=== PATIENT | female | born 1970 ===

== ENCOUNTER 2019-01-12 07:24 | Emergency (ER) | payer BC ==
--- NOTE | 2019-01-12 08:15 | UC ---
Respiratory Complaint HPI - HPI Summary HPI Summary: 48-year-old nonsmoker who has had cold symptoms for one week and a residual harsh cough. She has no history of asthma. - History of Current Complaint Stated Complaint: COUGH Time Seen by Provider: 01/12/19 08:01 Hx Obtained From: Patient ?: No Onset/Duration: Gradual Onset, Other Timing: Intermittent Episodes - Started 8 days ago. Severity Initially: Mild Severity Currently: Moderate Character: Cough: Nonproductive Aggravating Factors: Recumbent Position Alleviating Factors: Nothing Associated Signs And Symptoms: Positive: Wheezing - Patient states she feels some wheezing at night., URI - Allergies/Home Medications Allergies/Adverse Reactions: Allergies Allergy/AdvReac Type Severity Reaction Status Date / Time No Known Allergies Allergy Verified 01/12/19 08:19 Home Medications: Home Medications Cetirizine* [ZyrTEC 10 MG TAB*] 10 mg PO DAILY 01/12/19 [History Confirmed 01/12] Levothyroxine Sodium 50 mcg PO DAILY 01/12/19 [History Confirmed 01/12/19] Losartan TAB* [Cozaar TAB*] 25 mg PO DAILY 01/12/19 [History Confirmed 01/12/19] PMH/Surg Hx/FS Hx/Imm Hx Previously Healthy: Yes Endocrine History: Thyroid Disease Cardiovascular History: Hypertension - Family History Known Family History: Positive: Non-Contributory Review of Systems All Other Systems Reviewed And Are Negative: Yes Respiratory: Positive: Cough - R's cough with wheezing at night. Is Patient Immunocompromised?: No Physical Exam Triage Information Reviewed: Yes Appearance: Well-Appearing, No Pain Distress, Well-Nourished Vital Signs Reviewed: Yes ENT: Positive: Hearing grossly normal, Pharynx normal, Nasal drainage - Clear nasal coryza, TMs normal, Uvula midline Neck: Positive: Supple, Nontender, No Lymphadenopathy Respiratory: Positive: Lungs clear, Normal breath sounds - Patient has a harsh cough and very minimal wheeze with forced expiration., No respiratory distress, No accessory muscle use Cardiovascular: Positive: RRR, No Murmur, Pulses Normal, Brisk Capillary Refill Musculoskeletal Exam: Normal Neurological Exam: Normal Psychological Exam: Normal Skin Exam: Normal Respiratory Course/Dx - Course Course Of Treatment: I'm going to treat the patient for bronchitis with prednisone taper. She is to follow up with her primary care provider next week if she starts running a fever or worsening symptoms or no improvement. - Differential Dx/Diagnosis Provider Diagnosis: Bronchitis Discharge - Sign-Out/Discharge Documenting (check all that apply): Patient Departure All imaging exams completed and their final reports reviewed: No Studies - Discharge Plan Condition: Fair Disposition: HOME Prescriptions: predniSONE [Prednisone 20 MG TAB] 20 mg PO DAILY 9 Days #18 tablet Patient Education Materials: Acute Bronchitis (ED) Referrals: Sawyer Busch MD [Primary Care Provider] - Additional Instructions: Increase fluids, take the prednisone with food, follow-up with your primary care provider early next week if no improvement. - Billing Disposition and Condition Condition: FAIR Disposition: Home - Attestation Statements Provider Attestation: Per institutional requirements, I have reviewed the chart, however, I was not consulted specifically or made aware of this patient by the midlevel provider. I did not personally evaluate, interact with , or disposition this patient.
[2019-01-12 08:19] VITALS: BP 137/79
== END 2019-01-12 08:24 | disposition home or self-care (01) ==
LOC: UCCORT 07:24
DX: J40 Bronchitis, not specified as acute or chronic (principal); I10 Essential (primary) hypertension; E07.9 Disorder of thyroid, unspecified; Z79.899 Other long term (current) drug therapy
CPT/HCPCS: 99212; G0463